=== PATIENT | male | born 1970 | race Caucasian/White ===

== ENCOUNTER 2017-06-18 08:48 | Emergency (ER) | payer MEDICAID, SELFPAY ==
[2017-06-18 08:50] VITALS: BP 160/108; PULSE 105; RESP 20; TEMP 37.1; O2SAT 99; BMI 31.6
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
--- NOTE | 2017-06-18 09:05 | RAD_ITS ---
STUDY: X-RAY CHEST REASON FOR EXAM: Male, 46 years old. Head and chest TECHNIQUE: PA and lateral views of the chest. COMPARISON: None. FINDINGS: The lungs are hyperinflated. There are bilateral perihilar calcifications compatible with old granulomatous disease. There is no demonstrated pleural abnormality. Normal size heart. Normal mediastinum and hema. Normal visualized pulmonary arteries. There is atherosclerotic tortuosity of the aortic arch and descending thoracic aorta. There are diffuse degenerative changes of the visualized thoracic spine. Normal visualized ribs, clavicles, and shoulders. There is no demonstrated abnormality of the visualized soft tissue structures of the upper abdomen. RAD/Chest PA and Lateral IMPRESSION: Degenerative changes, as described above. No demonstrated acute cardiopulmonary process. Electronically Signed: Nancy Suarez MD at 10:08 EST Tel , Service support ,
--- NOTE | 2017-06-18 09:05 | EKG12_ITS ---
Test Reason : WB Blood Pressure : / mmHG Vent. Rate : 092 BPM Atrial Rate : 092 BPM P-R Int : 142 ms QRS Dur : 084 ms QT Int : 356 ms P-R-T Axes : 067 051 025 degrees QTc Int : 440 ms Normal sinus rhythm Normal ECG Confirmed by NARCISO WARRNE, ROSA ([id number]), editor dictionary BRYN RAMIREZ ([id number] on 06/21/2017 8:37:48 AM Referred By: CAROL Confirmed By:ROSA STUART MD
[2017-06-18 09:09] VITALS: BP 143/105; PULSE 97; RESP 18; O2SAT 99
--- NOTE | 2017-06-18 09:10 | NURSING ---
NO OLD EKGS
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
[2017-06-18 09:33] LABS: Absolute Lymphocyte Count 1.41 X10^3/ul (0.83-4.51); Absolute Neutrophil Count 7.6 X10^3/uL (2.0-7.7); Basophil# 0.02 X10^3/uL; Basophil% 0.2 % (0-1); Eosinophil# 0.29 X10^3/uL; Eosinophils% 2.8 % (0-5); Hematocrit 45.5 % (40-54); Hemoglobin 15.5 g/dl (13.0-16.5); Lymphocyte # 1.41 X10^3/ul (4.0); Lymphocyte % 13.8 % (19-41); Mean Corp Hgb Conc 34.1 g/gl (32-36); Mean Corpuscular Hgb 31.1 pg (27.0-32.0); Mean Corpuscular Volume 91.2 fL (80-94); Mean Platelet Vol. 9.4 fl (6.2-12.0); Monocyte# 0.84 X10^3/uL; Monocyte% 8.2 % (0-10); Neutrophil # 7.63 X10^3/uL (2.7-7.7); Neutrophil % 74.8 % (47-70); Platelet Count 235 K/mm3 (150-450); RBC Distribution Width CV 13.1 % (11.6-14.6); RBC Distribution Width SD 43.3 fl (35.1-43.9); Red Blood Count 4.99 M/mm3 (4.6-6.2); White Blood Count 10.2 K/mm3 (4.4-11.0)
[2017-06-18 09:38] LABS: POSITIVE COUNT NO; POSITIVE DIFFERENTIAL NO; POSITIVE MORPHOLOGY NO
[2017-06-18 09:50] LABS: ALB/GLOB Ratio 1.1 RATIO (0.9-2.4); AST(SGOT) 23 U/L (15-37); Alanine Aminotransfer ALT/SGPT 30 U/L (16-61); Alkaline Phosphatase 67 U/L (45-117); Anion Gap 9 (5-15); BUN 17 mg/dL (7-18); BUN/Creat Ratio 22.6 RATIO (10-20); Calcium,Total 8.8 mg/dL (8.5-10.1); Chloride 104 mmol/L (98-107); Creatinine, Serum 0.75 mg/dL (0.70-1.30); EST Glomerular Filtration Rate 117 mL/min (>60); Est Glom Filt Rate - Afr Amer 142 mL/min (>60); Estimated Creatinine Clearance 112.61 ml/min; Globulin 3.6 g/dL (2.2-4.2); Glucose 101 mg/dL (74-106); Potassium 3.7 mmol/L (3.5-5.1); Protein, Total 7.6 g/dL (6.4-8.2); Sodium Level 140 mmol/L (136-145)
[2017-06-18 10:32] VITALS: BP 129/84; PULSE 94; RESP 20; O2SAT 95
== END 2017-06-18 10:34 | disposition home or self-care (01) ==
PROVIDERS: Emergency Provider Emergency Medicine
DX: R07.9 Chest pain, unspecified (principal); S00.91XA Abrasion of unspecified part of head, initial encounter; Y04.8XXA Assault by other bodily force, initial encounter; Y93.01 Activity, walking, marching and hiking; Y92.9 Unspecified place or not applicable; I25.10 Atherosclerotic heart disease of native coronary artery without angina pectoris; I25.2 Old myocardial infarction
CPT/HCPCS: 70450; 71046; 80053; 84484; 85025; 93005; 96360; 99283; J7040; J7050; A4216

== ENCOUNTER 2017-12-09 01:59 | Emergency (ER) | payer MEDICAID, SELFPAY ==
[2017-12-09 02:00] VITALS: BP 151/106; PULSE 103; RESP 18; TEMP 37.1; O2SAT 97; BMI 30.5
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
--- NOTE | 2017-12-09 02:38 | CT_ITS ---
STUDY: CT FACIAL BONES WITHOUT CONTRAST REASON FOR EXAM: Male, 47 years old. RADIATION DOSAGE (If Supplied By Facility): CTDIvol = ( 29.38 ) mGy, DLP = ( 576.84 ) mGycm TECHNIQUE: The patient was scanned in a multi detector CT scanner. Sagittal and coronal images were reconstructed. Individualized dose optimization techniques were used for this CT. COMPARISON: None. FINDINGS: There is mild soft tissue swelling of the right frontal scalp. Normal orbital matthews and orbital contents. There is deformity of the inferior aspect of the left nasal bone seen only on the axial images suggestive of fracture. There is an old fracture of the left zygomatic arch. Surgical plates and screws are seen in the lateral aspect of the left orbital rim and wall. There are also surgical plate and screws securing old fracture of the left side of the mandible. The remainder of the facial bony structures appear unremarkable. The temporomandibular joints are unremarkable. There is mild mucosal thickening of the ethmoids and maxillary sinuses. There may be small retention cyst in the floor of the left maxillary sinus. There is minerva bullosa of the right middle nasal turbinate. There is hypertrophy of the right inferior nasal turbinate. The ostiomeatal complexes bilaterally may be partially occluded. CT/Sinus/Facial Bone IMPRESSION: Old fractures of the left-sided facial bones as described above. No demonstrated acute fracture. Sinus disease. Electronically Signed: Richard Adams MD at 3:36 EDT Tel , Service support ,
[2017-12-09] MEDS: oxyCODONE 5 MG Tablet 10 MG PO (02:45)
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
--- NOTE | 2017-12-09 03:41 | ED.RN ---
attempted to call and update at this time. no voice mail set up. [phone]
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
[2017-12-09] MEDS: Morphine 4 MG/ML Syringe IV ×2 (05:54→10:03)
[2017-12-09 06:03] VITALS: BP 131/108; PULSE 86; RESP 16; O2SAT 96
[2017-12-09 06:28] LABS: Absolute Lymphocyte Count 1.84 X10^3/ul (0.83-4.51); Absolute Neutrophil Count 10.4 X10^3/uL (2.0-7.7); Basophil# 0.01 X10^3/uL; Basophil% 0.1 % (0-1); Eosinophil# 0.19 X10^3/uL; Eosinophils% 1.4 % (0-5); Hematocrit 41.1 % (40-54); Hemoglobin 13.4 g/dl (13.0-16.5); Lymphocyte # 1.84 X10^3/ul (4.0); Mean Corp Hgb Conc 32.6 g/gl (32-36); Mean Corpuscular Hgb 29.9 pg (27.0-32.0); Mean Corpuscular Volume 91.7 fL (80-94); Mean Platelet Vol. 9.2 fl (6.2-12.0); Monocyte# 0.73 X10^3/uL; Monocyte% 5.6 % (0-10); Neutrophil # 10.37 X10^3/uL (2.7-7.7); Neutrophil % 78.8 % (47-70); Platelet Count 237 K/mm3 (150-450); RBC Distribution Width CV 13.4 % (11.6-14.6); RBC Distribution Width SD 44.4 fl (35.1-43.9); Red Blood Count 4.48 M/mm3 (4.6-6.2); White Blood Count 13.2 K/mm3 (4.4-11.0)
[2017-12-09 06:38] LABS: Anion Gap 9 (5-15); BUN 13 mg/dL (7-18); BUN/Creat Ratio 15.2 RATIO (10-20); Calcium,Total 8.7 mg/dL (8.5-10.1); Chloride 109 mmol/L (98-107); Creatinine, Serum 0.86 mg/dL (0.70-1.30); EST Glomerular Filtration Rate 101 mL/min (>60); Est Glom Filt Rate - Afr Amer 122 mL/min (>60); Estimated Creatinine Clearance 93.76 ml/min; Glucose 108 mg/dL (74-106); Potassium 3.8 mmol/L (3.5-5.1); Sodium Level 144 mmol/L (136-145)
[2017-12-09 06:45] LABS: POSITIVE COUNT NO; POSITIVE DIFFERENTIAL NO; POSITIVE MORPHOLOGY NO
--- NOTE | 2017-12-09 08:25 | ED.VISSUMM ---
- ER Visit Summary Date of Service: 12/09/17 Patient was turned over to me, I reevaluated him he does have decreased strength in his upper extremities and quite a few paresthesias, MRI does show some facet swelling, I am worried about central cord syndrome based on his exam, I talked to transfer line at [facility] and patient will be accepted there for trauma service. This note was generated with [employer] dictation software. It may contain incorrect words, spelling, and punctuation that were not noted in review of the chart prior to signing ED Disposition - Plan for ED Patient: Chief Complaint: Fall Diagnosis: Closed head injury with concussion, Hyperextension injury of neck, Neuropathic pain of upper extremity Referrals: Care Physician,No Primary [Primary Care Provider] -
--- NOTE | 2017-12-09 08:29 | ED.DCSUM_ITS ---
- ER Visit Summary Date of Service: 12/09/17 Patient was turned over to me, I reevaluated him he does have decreased strength in his upper extremities and quite a few paresthesias, MRI does show some facet swelling, I am worried about central cord syndrome based on his exam , I talked to transfer line at [facility] and patient will be accepted there for trauma service. This note was generated with [employer] dictation software. It may contain incorrect words, spelling, and punctuation that were not noted in review of the chart prior to signing ED Disposition - Plan for ED Patient: Chief Complaint: Fall Diagnosis: Closed head injury with concussion, Hyperextension injury of neck, Neuropathic pain of upper extremity Referrals: Care Physician,No Primary [Primary Care Provider] -
--- NOTE | 2017-12-09 09:04 | NURSING ---
CALLED [facility], ETA IS ABOUT AN HOUR CALLED [facility], ETA IS 45 TO 60 MIN
[2017-12-09 09:17] VITALS: BP 143/104; PULSE 75; RESP 20; O2SAT 97
[2017-12-09] MEDS: Ondansetron 4 MG/2 ML Vial IV (10:03)
== END 2017-12-09 10:09 | disposition short-term general hospital (02) ==
PROVIDERS: Emergency Provider Emergency Medicine
DX: S06.0X9A Concussion with loss of consciousness of unspecified duration, initial encounter (principal); S13.9XXA Sprain of joints and ligaments of unspecified parts of neck, initial encounter; S14.126A Central cord syndrome at C6 level of cervical spinal cord, initial encounter; V19.88XA Pedal cyclist (driver) (passenger) injured in other specified transport accidents, initial encounter; M79.2 Neuralgia and neuritis, unspecified; Y93.55 Activity, bike riding; Y92.9 Unspecified place or not applicable; F17.200 Nicotine dependence, unspecified, uncomplicated
CPT/HCPCS: 70450; 70486; 72125; 72128; 72141; 73030; 73110; 80048; 85025; 96374; 96375; 96376; 99285; A4216; J2405

== ENCOUNTER → 2018-02-15 12:33 | Outpatient (CLI) | payer MEDICAID, SELFPAY ==
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
== END ==
PROVIDERS: Referring Provider Surgery; Visit Provider Surgery
DX: K43.2 Incisional hernia without obstruction or gangrene (principal)
CPT/HCPCS: 74177; Q9967

== ENCOUNTER 2018-02-24 23:40 | Emergency (ER) | payer MEDICAID, SELFPAY ==
[2018-02-24 23:40] VITALS: BP 160/101; PULSE 101; RESP 16; TEMP 36.4; O2SAT 95; BMI 33.6
--- NOTE | 2018-02-24 23:42 | ED.RN ---
AX TAKEN OUT OF PT POCKET BY EMS GIVEN TO KATELYN IGNACIO
[2018-02-25] MEDS: Acetaminophen 500 MG Tablet 1000 MG PO (00:16)
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
--- NOTE | 2018-02-25 00:57 | DCINST.ED_ITS ---
ED Disposition - Plan for ED Patient: Disposition: Home or Assisted Living Chief Complaint: Other, Pain/Inj Instructions: Neck Problems: Relieving Your Symptoms Referrals: Care Physician,No Primary [Primary Care Provider] - Doctor,Your [STAFF PHYSICIAN] - Additional Instructions: Follow with your doctor at [facility]
[2018-02-25 01:06] VITALS: BP 148/101; PULSE 100; RESP 17; O2SAT 97
== END 2018-02-25 01:07 | disposition home or self-care (01) ==
PROVIDERS: Emergency Provider Emergency Medicine
DX: M54.2 Cervicalgia (principal); V43.62XA Car passenger injured in collision with other type car in traffic accident, initial encounter; Y93.89 Activity, other specified; Y92.481 Parking lot as the place of occurrence of the external cause; Z72.0 Tobacco use
CPT/HCPCS: 72040; 99284

== ENCOUNTER 2018-12-01 19:25 | Emergency (ER) | payer OTHER, SELFPAY ==
[2018-12-01] VITALS (10 sets, daily range): BP systolic 113–161; BP diastolic 69–115; PULSE 100–141; RESP 14–31; TEMP 37.2–37.7; O2SAT 94–99; BMI 31.6; BMI 32.5
--- NOTE | 2018-12-01 19:42 | EKG12_ITS ---
Test Reason : HEAD INJURY Blood Pressure : / mmHG Vent. Rate : 134 BPM Atrial Rate : 134 BPM P-R Int : 130 ms QRS Dur : 080 ms QT Int : 292 ms P-R-T Axes : 062 058 260 degrees QTc Int : [address] & T wave abnormality, consider inferolateral ischemia Abnormal ECG Confirmed by NARCISO WARREN, ROSA ([id number]), slot editor SHAYY QUINTANA ([id number]) on 12/04/2018 1:05:34 PM Referred By: BHARATHI Confirmed By:ROSA STUART MD
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
--- NOTE | 2018-12-01 19:43 | CT_ITS ---
STUDY: CT CERVICAL SPINE WITHOUT CONTRAST REASON FOR EXAM: Male, 48 years old. Trauma RADIATION DOSAGE (If Supplied By Facility): CTDIvol = ( 16.11 ) mGy, DLP = ( 330.89 ) mGycm TECHNIQUE: High resolution transaxial imaging was performed without contrast material. Sagittal and coronal images were reconstructed. Individualized dose optimization techniques were used for this CT. COMPARISON: Prior study of 12/09/2017 FINDINGS: The study is limited secondary to scanning artifact caused by orthopedic hardware. Normal craniovertebral junction. Normal anterior atlantoaxial articulation. Normal odontoid process. There is straightening of the normal cervical lordosis. There is endplate spondylosis of C4-T2. There are posterior spinal fusion changes with rods and interpeduncular screws from C4 to T2. There are status post laminectomy changes of C5 and C6. C2-3: There are bilateral degenerative facet changes. Disc spacing is normal. There is moderately severe foraminal narrowing on the left. There is no central canal stenosis. C3-4: There are bilateral degenerative facet changes. There is moderately severe bilateral foraminal narrowing. There is no central canal stenosis. Disc spacing is within normal limits. C4-5: There are hypertrophic facet changes on the left. There is mild disc space narrowing. There is moderately severe foraminal narrowing on the left. There is no central canal stenosis. C5-6: There are bilateral degenerative facet changes. There is moderately severe bilateral foraminal narrowing. There is no central canal stenosis. There is mild disc space narrowing. C6-7: There is moderately severe disc space narrowing. There are mild bilateral degenerative facet changes. There is moderately severe bilateral foraminal narrowing. There is no central canal stenosis. C7-T1: There is severe disc space narrowing. There are bilateral degenerative facet changes. There is no central canal stenosis or foraminal narrowing. There is an old chip fracture of the tip of the T1 spinous process. Normal visualized soft tissue structures. CT/Spine Cervical without Contras IMPRESSION: Multilevel degenerative and postsurgical changes as detailed above. There is no evidence of acute fracture or subluxation. Electronically Signed: Abelardo Underwood MD at 20:49 EDT , Service support ,
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
[2018-12-01 20:01] LABS: Absolute Lymphocyte Count 1.19 X10^3/uL (0.83-4.51); Absolute Neutrophil Count 9.4 X10^3/uL (2.0-7.7); Basophil# 0.04 X10^3/uL; Basophil% 0.3 % (0-1); Eosinophil# 0.05 X10^3/uL; Eosinophils% 0.4 % (0-5); Hematocrit 41.3 % (40-54); Hemoglobin 14.2 g/dL (13.0-16.5); Lymphocyte # 1.19 X10^3/ul (4.0); Lymphocyte % 10.2 % (19-41); Mean Corp Hgb Conc 34.4 g/dL (32-36); Mean Corpuscular Hgb 30.7 pg (27.0-32.0); Mean Corpuscular Volume 89.4 fL (80-94); Mean Platelet Vol. 9.5 fl (6.2-12.0); Monocyte# 0.99 X10^3/uL; Monocyte% 8.5 % (0-10); NRBC Flagged by Analyzer 0 % (0-5); Neutrophil # 9.39 X10^3/uL (2.7-7.7); Neutrophil % 80.3 % (47-70); Platelet Count 246 K/mm3 (150-450); RBC Distribution Width CV 12.4 % (11.6-14.6); RBC Distribution Width SD 40.4 fl (35.1-43.9); Red Blood Count 4.62 M/mm3 (4.6-6.2); White Blood Count 11.7 K/mm3 (4.4-11.0)
[2018-12-01 20:06] LABS: Bedside Glucose 138 mg/dL (70-110)
--- NOTE | 2018-12-01 20:07 | CT_ITS ---
STUDY: CT ABDOMEN AND PELVIS WITHOUT CONTRAST REASON FOR EXAM: Male, 48 years old. Trauma RADIATION DOSAGE (If Supplied By Facility): CTDIvol = ( 16.99 ) mGy, DLP = ( 1306.86 ) mGycm TECHNIQUE: Transaxial images were obtained from the dome of the diaphragm to the symphysis pubis without oral contrast, and without intravenous contrast. Sagittal and coronal images were reconstructed. Individualized dose optimization techniques were used for this CT. COMPARISON: Prior study of 02/15/2018 FINDINGS: This trauma study is technically limited, being performed without intravenous contrast. The visualized lung bases are unremarkable. The visualized portions of the heart are within normal limits. There is a small hernia containing fat of the posterior right hemidiaphragm. Normal liver. There are gas containing gallstones. Normal spleen. Normal pancreas. Normal bilateral adrenal glands. Normal right kidney. Normal left kidney. Normal visualized stomach. There is a knuckle of nondistended small bowel within an umbilical hernia. There are several tubular foreign bodies in the rectum. The cecum and appendix are located in a right flank hernia. The appendix is visualized and appears normal. There are calcified plaques of the abdominal aorta and common iliac arteries. Normal inferior vena cava. Normal retroperitoneum. Normal urinary bladder. There is a fat-containing left inguinal hernia. There is a midline ventral hernia containing abdominal fat. There are diffuse degenerative changes of the visualized thoracolumbar spine. There is a bilateral L5 spondylolysis with no associated spondylolisthesis. CT/Abdomen/Pelvis W IV Cont ONLY IMPRESSION: 1. Small Bochdalek hernia of the posterior right hemidiaphragm. 2. Cholelithiasis. 3. Midline ventral hernia containing abdominal fat. 4. Knuckle of nondistended small bowel within an umbilical hernia. 5. Small fat-containing left inguinal hernia. 6. The cecum and appendix are located in the right flank hernia. 7. There are several air-filled tubular foreign bodies in the rectum. 8. Diffuse degenerative changes of the visualized thoracolumbar spine. Bilateral L5 spondylolysis with no associated spondylolisthesis. 9. There is no evidence of free intra-abdominal or intrapelvic air, fluid, or inflammatory process. Electronically Signed: Abelardo Underwood MD at 21:00 EDT , Service support ,
[2018-12-01 20:13] LABS: Anion Gap 9 (5-15); BUN 28 mg/dL (7-18); BUN/Creat Ratio 22.4 RATIO (10-20); Calcium,Total 9.5 mg/dL (8.5-10.1); Chloride 104 mmol/L (98-107); Creatinine, Serum 1.25 mg/dL (0.70-1.30); EST Glomerular Filtration Rate 65 mL/min (>60); Est Glom Filt Rate - Afr Amer 79 mL/min (>60); Glucose 129 mg/dL (74-106); Potassium 3.1 mmol/L (3.5-5.1); Sodium Level 136 mmol/L (136-145)
--- NOTE | 2018-12-01 20:16 | RAD_ITS ---
STUDY: X-RAY CHEST REASON FOR EXAM: Male, 48 years old. Trauma TECHNIQUE: Single AP portable view of the chest. COMPARISON: Prior study of 06/18/2017 FINDINGS: cardiac monitor leads are present. The lungs are clear and expanded. There is no demonstrated pleural abnormality. Normal size heart. Normal mediastinum and hema. Normal visualized pulmonary arteries. Normal visualized aortic arch and descending thoracic aorta. Normal visualized thoracic spine. Normal visualized ribs, clavicles, and shoulders. Orthopedic hardware is seen in the lower cervical/upper thoracic region. There is no demonstrated abnormality of the visualized soft tissue structures of the upper abdomen. RAD/Chest 1 View (Portable) IMPRESSION: No acute cardiopulmonary disease process is seen. Electronically Signed: Abelardo Underwood MD at 21:26 EDT , Service support ,
[2018-12-01 20:21] LABS: Alcohol, Blood (Medical)-Serum < 3.0 mg/dL
[2018-12-01 20:47] LABS: Bacteria 0 SEEN /hpf (None Seen); Mucous, Urine 0 SEEN /hpf (<or=2+); Squamous Epithelial Cells - UA 0 SEEN /hpf (0-5); White Blood Cells 0 SEEN /hpf (0-5)
[2018-12-01 20:51] LABS: Color, Urine Amber (Yellow); Glucose, Dipstick Normal (Normal); Leukocyte Esterase-Dipstick 25 /ul (Negative); Nitrite-Dipstick Negative (Negative); Occult Blood-Urine 150 /ul (Negative); Protein-Dipstick 100 mg/dl (Negative); Specific Gravity, Urine 1.025 (1.002-1.030); Urine Bilirubin Dipstick 1 mg/dL (Negative); Urine Clarity Sl. Cloudy (Clear); Urine Urobilinogen 1 mg/dl (Normal)
[2018-12-01 20:53] LABS: Ketone-Dipstick 150 mg/dl (Negative)
--- NOTE | 2018-12-01 20:53 | ED.RN ---
LAB CALLED CRITICAL RESULT OF URINE KETONES OF 150, DR MEDINA NOTIFIED, NFO'S
[2018-12-01 21:06] LABS: Red Blood Cells-Urine 0-5 SEEN /hpf (0-5)
[2018-12-01] MEDS: Diphth,Pertuss(Acell),Tet Vac 0.5 ML Vial IM (21:06)
[2018-12-01 21:09] LABS: Amphetamine Urine VISTA POSITIVE (<1000 ng/mL); Barbiturate Urine VISTA NEGATIVE (< 200 ng/mL); Benzodiazepine Urine VISTA NEGATIVE (< 200 ng/mL); Cocaine Urine VISTA NEGATIVE (< 300 ng/mL); Ecstacy Urine VISTA POSITIVE (< 500 ng/mL); Methadone Urine VISTA NEGATIVE (< 300 ng/mL); PCP Urine VISTA NEGATIVE (< 25 ng/mL); THC Urine VISTA NEGATIVE (< 50 ng/mL); Vista UDS pH Range 6
[2018-12-01] MEDS: 0.9% Normal Saline 1,000 ML 999 ML IV (21:18)
[2018-12-01] MEDS: Propofol 200 MG/20 ML Vial 100 MG IV BOLUS (23:47)
[2018-12-02] VITALS (7 sets, daily range): BP systolic 125–138; BP diastolic 68–99; PULSE 98–110; RESP 16–20; O2SAT 94–98
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
--- NOTE | 2018-12-02 01:51 | ED.RN ---
THIS NURSE SPOKE WITH THE PT ABOUT THE GLASS PIPES THAT WERE PULLED OUT OF HIS RECTUM. PT DENIED THAT THE GLASS PIPES WERE HIS. THIS NURSE OFFERED TO CALL THE POLICE SINCE HE IS UNSURE HOW THE PIPES GOT INTO HIS RECTUM. PT DECLINED. PT INFORMED THAT THE GLASS PIPES WERE GOING TO BE DISPOSED OF IN THE MEDICAL SHARPS CONTAINER. PT AGREED. TWO GLASS PIPES WERE PLACED IN THE SHARPS CONTAINER IN THE ROOM. APPROXIMATELY 15 MINUTES LATER, THE PT CALLED THIS NURSE INTO THE ROOM AND STATES I WANT MY PIPES BACK. THIS NURSE INFORMED THE PT THAT I AM UNABLE TO GET THE PIPES BACK OUT OF THE SHARPS CONTAINER. PT STATES I WANT TO REPORT THIS TO THE SPEECH/LANGUAGE THERAPIST DEPARTMENT. THIS NURSE OFFERED TO CALL THE POLICE MULTIPLE TIMES DURING THE CONVERSATION. PT STATES NO. I WANT TO SPEAK WITH THE SGT FROM THE SPEECH/LANGUAGE THERAPIST DEPARTMENT. I DO NOT WANT YOU CALLING ANYONE. PT AGAIN INFORMED THAT I AM UNABLE TO GET THE GLASS PIPES OUT OF THE SHARPS CONTAINER. PT STATES I WILL HAVE THE SGT COME UP TOMORROW AND GET THEM. PT AGAIN INFORMED THAT I AM UNABLE TO GET THE PIPES OUT OF THE SHARPS CONTAINER. PT STATES STOP TALKING TO ME LIKE I'M A 1 YR OLD. THIS NURSE INFORMED THE PT THAT I HAVE OFFERED TO CALL THE POLICE SEVERAL TIMES FOR THE PT AND HE REFUSES. I AM UNABLE TO GET THE PIPES OUT OF THE SHARPS CONTAINER. HE IS NOT ABLE TO GET THE PIPES BACK. THE PT STATES I WILL COME UP TOMORROW AND GET THEM. ONCE AGAIN, THIS NURSE INFORMED THE PT THAT WE ARE UNABLE TO GET THE PIPES OUT OF THE CONTAINER. PT STATES YOUR CUSTOMER SERVICE IS TERRIBLE. I AM NEVER COMING HERE AGAIN.
--- NOTE | 2018-12-02 02:26 | ED.RN ---
pt stated that he was going to call a taxi to come pick him up
--- NOTE | 2018-12-02 02:32 | ED.RN ---
AFTER PT LEFT, TWO GLASS PIPES ARE STILL IN THE SHARPS CONTAINER
== END 2018-12-02 02:33 | disposition home or self-care (01) ==
PROVIDERS: Emergency Provider Emergency Medicine
DX: S01.81XA Laceration without foreign body of other part of head, initial encounter (principal); S16.1XXA Strain of muscle, fascia and tendon at neck level, initial encounter; S39.91XA Unspecified injury of abdomen, initial encounter; V19.88XA Pedal cyclist (driver) (passenger) injured in other specified transport accidents, initial encounter; Y93.55 Activity, bike riding; Y92.9 Unspecified place or not applicable; Y99.8 Other external cause status; T18.5XXA Foreign body in anus and rectum, initial encounter; T43.625A Adverse effect of amphetamines, initial encounter; F17.200 Nicotine dependence, unspecified, uncomplicated
CPT/HCPCS: 12011; 45330; 51702; 70450; 71045; 72125; 74177; 80048; 80307; 80320; 81001; 82962; 85025; 90715; 93005; 96360; 99152; 99153; 99285; J7030; Q9967; A4216; G0480